=== PATIENT | female | born 1955 | race Caucasian/White ===

== ENCOUNTER 2022-10-07 22:21 | Emergency (ER) | payer MEDICARE, OTHER ==
[~2022-10-07 22:21] MED LIST: Aspirin 81 mg Enteric Coated Tablet ONE; Dicyclomine 10 MG CAP ONE; Estradiol 1 MG TAB ONE; FLUoxetine HCl 20 MG CAP ONE; Furosemide 20 MG TAB ONE; Gabapentin 400 MG CAP ONE; Glimepiride 2 MG TAB ONE; Hydrochlorothiazide 25 MG TAB ONE; Lisinopril 5 MG TAB ONE; Meloxicam 7.5 MG TAB ONE; busPIRone HCl 5 MG TAB ONE; metFORMIN 500 MG TAB ONE
[2022-10-07 22:59] LABS: #Basophils 0.1 thou/uL (0.0-0.2); #Eosinphils 0.3 thou/uL (0.0-0.7); #Lymphocytes 3.3 thou/uL (1.20-3.40); #Monocytes 1.1 thou/uL (0.11-0.59); #Neutrophils 8.8 thou/uL (1.40-6.50); %Basophils 0.8 % (0.0-1.0); %Eosinophils 2.3 % (0.0-10.0); %Lymphocytes 24.2 % (21.0-51.0); %Monocytes 8.1 % (0.0-10.0); %Neutrophils 64.7 % (42.0-75.0); Mean Corpuscular HGB CONC 34.9 g/dL (32.0-36.0); Mean Corpuscular Hemoglobin 28.9 pg (27.0-31.0); Mean Corpuscular Volume 82.8 fl (78.0-98.0); Mean Platelet Volume 7.6 fL (7.4-10.4); Platelet Count 257 10x3/uL (130-400); RBC Distribution Width 13.6 % (11.5-14.5); White Blood Cell (WBC) Count 13.7 10x3/uL (4.8-10.8)
[2022-10-07] MEDS ORDERED: Aspirin Chewable 81 MG TAB ONE (23:00)
[2022-10-07 23:20] LABS: INR-International Normal Ratio 1.7; PTT 37.1 sec (22.9-36.1); Prothrombin Time 20.9 sec (12.0-14.7)
[2022-10-07 23:21] LABS: ALT (SGPT) 18 U/L (8-55); AST (SGOT) 16 U/L (5-34); Albumin 4.1 g/dL (3.4-4.8); Alkaline Phosphatase 78 U/L (40-110); Anion Gap 18 mmol/L (10-20); BUN (Urea Nitrogen) 17 mg/dL (9.8-20.1); Bilirubin, Total 0.2 mg/dL (0.2-1.2); CK (CPK) 157 U/L (29-168); Calc. Creatinine Clearance 0 mL/min (70-130); Calcium 9.7 mg/dL (7.8-10.44); Carbon Dioxide 21 mmol/L (23-31); Chloride 102 mmol/L (98-107); Estimated GFR 73; Globulin 2.9 g/dL (2.4-3.5); Glucose 164 mg/dL (80-115); Lipase 55 U/L (8-78); Magnesium 1.8 mg/dL (1.6-2.6); Potassium 3.9 mmol/L (3.5-5.1); Sodium 137 mmol/L (136-145)
[2022-10-07 23:25] LABS: D-Dimer Test 0.27 *mcg/mL (0.27-0.43)
[2022-10-07 23:37] LABS: Bilirubin Negative (Negative); Blood, Urine Trace (Negative); Clarity Clear (Clear); Glucose, Urine (Dipstick) Negative (Negative); Ketone, Urine Trace mg/dL (Negative); Leukocyte Negative (Negative); Nitrite Negative (Negative); Protein, Urine (Dipstick) Negative (Neg-Trace); Urobilinogen 0.2 mg/dL (Less than 2)
[2022-10-07 23:47] LABS: Bacteria/HPF None Seen HPF (None Seen); RBC/HPF 0-3 HPF (0-3); Squamous Epithelial 0-3 HPF (0-3); WBC/HPF 0-3 HPF (0-3)
[2022-10-08 08:59] LABS: #Basophils 0.1 thou/uL (0.0-0.2); #Eosinphils 0.2 thou/uL (0.0-0.7); #Lymphocytes 2.7 thou/uL (1.20-3.40); #Monocytes 0.7 thou/uL (0.11-0.59); #Neutrophils 5.6 thou/uL (1.40-6.50); %Basophils 0.7 % (0.0-1.0); %Eosinophils 2.3 % (0.0-10.0); %Lymphocytes 28.9 % (21.0-51.0); %Neutrophils 60.2 % (42.0-75.0); Hemoglobin 10.5 g/dL (12.0-16.0); Mean Corpuscular HGB CONC 32.3 g/dL (32.0-36.0); Mean Corpuscular Hemoglobin 27.4 pg (27.0-31.0); Mean Corpuscular Volume 84.6 fl (78.0-98.0); Mean Platelet Volume 7.4 fL (7.4-10.4); Platelet Count 247 10x3/uL (130-400); RBC Distribution Width 13.5 % (11.5-14.5); Red Blood Cell (RBC) Count 3.83 mill/uL (4.20-5.40); White Blood Cell (WBC) Count 9.3 10x3/uL (4.8-10.8)
[2022-10-08 09:13] LABS: Anion Gap 13 mmol/L (10-20)
[2022-10-08 09:59] LABS: BUN (Urea Nitrogen) 13 mg/dL (9.8-20.1); Calc. Creatinine Clearance 0 mL/min (70-130); Carbon Dioxide 26 mmol/L (23-31); Chloride 100 mmol/L (98-107); Estimated GFR 81; Glucose 163 mg/dL (80-115); Potassium 3.8 mmol/L (3.5-5.1); Sodium 135 mmol/L (136-145)
[2022-10-08 10:00] LABS: Albumin 3.8 g/dL (3.4-4.8); Bilirubin, Total 0.4 mg/dL (0.2-1.2); Calcium 9.3 mg/dL (7.6-10.4); Globulin 2.9 g/dL (2.4-3.5); Protein, Total 6.7 g/dL (5.8-8.1)
[2022-10-08 10:04] LABS: ALT (SGPT) 17 U/L (8-55); AST (SGOT) 14 U/L (5-34); Alkaline Phosphatase 55 U/L (40-110)
[2022-10-08] MEDS ORDERED: Cyclobenzaprine 10 MG TAB PO PRN (10:44)
[2022-10-08] MEDS ORDERED: hydrOXYzine 25 MG TAB PO PRN (10:50)
[2022-10-08] MEDS ORDERED: Estradiol 1 MG TAB PO SCH (11:00)
[2022-10-08] MEDS ORDERED: Gabapentin 400 MG CAP PO SCH ×2 (11:00→15:00)
[2022-10-08] MEDS ORDERED: FLUoxetine HCl 20 MG CAP PO SCH (11:00)
[2022-10-08] MEDS ORDERED: metFORMIN 500 MG TAB PO SCH ×2 (11:00→17:00)
[2022-10-08] MEDS ORDERED: busPIRone HCl 5 MG TAB PO SCH ×2 (11:00→21:00)
[2022-10-08] MEDS ORDERED: Dicyclomine 10 MG CAP PO SCH ×2 (11:00→21:00)
[2022-10-08] MEDS ORDERED: Furosemide 20 MG TAB PO SCH ×2 (11:00→14:00)
[2022-10-08] MEDS ORDERED: Glimepiride 2 MG TAB PO SCH (11:00)
[2022-10-08] MEDS ORDERED: Rivaroxaban 10 MG TAB PO SCH (11:00)
[2022-10-08] MEDS ORDERED: Lisinopril 5 MG TAB PO SCH (11:00)
[2022-10-08] MEDS ORDERED: Meloxicam 7.5 MG TAB PO SCH (11:00)
[2022-10-08] MEDS ORDERED: Hydrochlorothiazide 25 MG TAB PO SCH (11:00)
[2022-10-08] MEDS ORDERED: Aspirin 81 mg Enteric Coated Tablet PO SCH (11:00)
[2022-10-08] MEDS ORDERED: Montelukast Sodium 10 mg Tablet PO SCH (21:00)
[2022-10-09] MEDS ORDERED: Glimepiride 2 MG TAB PO SCH (07:30)
[2022-10-09 08:31] LABS: #Basophils 0.1 thou/uL (0.0-0.2); #Eosinphils 0.2 thou/uL (0.0-0.7); #Monocytes 0.8 thou/uL (0.11-0.59); #Neutrophils 5.1 thou/uL (1.40-6.50); %Eosinophils 2.2 % (0.0-10.0); %Lymphocytes 32.5 % (21.0-51.0); %Monocytes 8.4 % (0.0-10.0); %Neutrophils 55.8 % (42.0-75.0); Hemoglobin 10.5 g/dL (12.0-16.0); Mean Corpuscular HGB CONC 32.6 g/dL (32.0-36.0); Mean Corpuscular Hemoglobin 27.4 pg (27.0-31.0); Mean Corpuscular Volume 84.1 fl (78.0-98.0); Mean Platelet Volume 7.1 fL (7.4-10.4); Platelet Count 243 10x3/uL (130-400); RBC Distribution Width 13.6 % (11.5-14.5); Red Blood Cell (RBC) Count 3.82 mill/uL (4.20-5.40); White Blood Cell (WBC) Count 9.2 10x3/uL (4.8-10.8)
[2022-10-09 08:49] LABS: ALT (SGPT) 17 U/L (8-55); AST (SGOT) 12 U/L (5-34); Albumin 3.7 g/dL (3.4-4.8); Alkaline Phosphatase 49 U/L (40-110); Anion Gap 15 mmol/L (10-20); BUN (Urea Nitrogen) 13 mg/dL (9.8-20.1); Bilirubin, Total 0.4 mg/dL (0.2-1.2); Calc. Creatinine Clearance 0 mL/min (70-130); Calcium 9.2 mg/dL (7.8-10.44); Carbon Dioxide 26 mmol/L (23-31); Chloride 99 mmol/L (98-107); Estimated GFR 79; Globulin 2.8 g/dL (2.4-3.5); Glucose 145 mg/dL (80-115); Potassium 3.7 mmol/L (3.5-5.1); Protein, Total 6.5 g/dL (5.8-8.1); Sodium 136 mmol/L (136-145)
[2022-10-09] MEDS ORDERED: FLUoxetine HCl 20 MG CAP PO SCH (09:00)
[2022-10-09] MEDS ORDERED: Meloxicam 7.5 MG TAB PO SCH (09:00)
[2022-10-09] MEDS ORDERED: Lisinopril 5 MG TAB PO SCH (09:00)
[2022-10-09] MEDS ORDERED: Rivaroxaban 10 MG TAB PO SCH (09:00)
[2022-10-09] MEDS ORDERED: Aspirin 81 mg Enteric Coated Tablet PO SCH (09:00)
[2022-10-09] MEDS ORDERED: Hydrochlorothiazide 25 MG TAB PO SCH (09:00)
[2022-10-09] MEDS ORDERED: Estradiol 1 MG TAB PO SCH (09:00)
== END 2022-10-09 11:20 | disposition home or self-care (01) ==
LOC: MADERS 22:21
DX: I20.0 Unstable angina (principal); R06.09 Other forms of dyspnea; I10 Essential (primary) hypertension; E11.9 Type 2 diabetes mellitus without complications; Z79.82 Long term (current) use of aspirin; Z79.84 Long term (current) use of oral hypoglycemic drugs
CPT/HCPCS: 36415; 71045; 80053; 81003; 81015; 82550; 83690; 83735; 83880; 84484; 85025; 85379; 85610; 85730; 93005

== ENCOUNTER 2023-01-13 15:42 | Emergency (ER) | payer MEDICARE, OTHER ==
[2023-01-13] MEDS ORDERED: Sodium Chloride 0.9% 100 ML ONE (15:52)
[2023-01-13] MEDS ORDERED: Diltiazem 125 MG/25 ML SDV ONE (15:52)
[2023-01-13 16:16] LABS: #Basophils 0.1 thou/uL (0.0-0.2); #Eosinphils 0.1 thou/uL (0.0-0.7); #Lymphocytes 2.7 thou/uL (1.20-3.40); #Monocytes 0.7 thou/uL (0.11-0.59); #Neutrophils 6.2 thou/uL (1.40-6.50); %Basophils 0.7 % (0.0-1.0); %Eosinophils 0.6 % (0.0-10.0); %Lymphocytes 27.3 % (21.0-51.0); %Monocytes 7.5 % (0.0-10.0); %Neutrophils 63.9 % (42.0-75.0); Hemoglobin 10.5 g/dL (12.0-16.0); Mean Corpuscular HGB CONC 33.3 g/dL (32.0-36.0); Mean Corpuscular Hemoglobin 27.7 pg (27.0-31.0); Mean Corpuscular Volume 83.1 fl (78.0-98.0); Mean Platelet Volume 8.1 fL (7.4-10.4); Platelet Count 335 10x3/uL (130-400); RBC Distribution Width 15.5 % (11.5-14.5); White Blood Cell (WBC) Count 9.7 10x3/uL (4.8-10.8)
[2023-01-13 16:28] LABS: ALT (SGPT) 12 U/L (8-55); AST (SGOT) 15 U/L (5-34); Albumin 3.7 g/dL (3.4-4.8); Alkaline Phosphatase 52 U/L (40-110); Anion Gap 17 mmol/L (10-20); BUN (Urea Nitrogen) 12 mg/dL (9.8-20.1); Bilirubin, Total 0.2 mg/dL (0.2-1.2); Calc. Creatinine Clearance 0 mL/min (70-130); Calcium 8.7 mg/dL (7.8-10.44); Carbon Dioxide 22 mmol/L (23-31); Chloride 103 mmol/L (98-107); Estimated GFR 75; Globulin 2.6 g/dL (2.4-3.5); Glucose 141 mg/dL (80-115); Magnesium 1.5 mg/dL (1.6-2.6); Potassium 3.3 mmol/L (3.5-5.1); Protein, Total 6.3 g/dL (5.8-8.1); Sodium 139 mmol/L (136-145)
[2023-01-13] MEDS ORDERED: Potassium Chloride 20 MEQ TAB ONE (17:04)
[2023-01-13] MEDS ORDERED: Magnesium 2 GM/50 ML BAG (IN WATER) ONE (17:05)
== END 2023-01-13 18:11 | disposition home or self-care (01) ==
LOC: MADERS 15:42
DX: I48.20 Chronic atrial fibrillation, unspecified (principal); E87.6 Hypokalemia; E83.42 Hypomagnesemia; D64.9 Anemia, unspecified; E11.9 Type 2 diabetes mellitus without complications; I10 Essential (primary) hypertension; Z79.899 Other long term (current) drug therapy; Z79.82 Long term (current) use of aspirin; Z79.84 Long term (current) use of oral hypoglycemic drugs
CPT/HCPCS: 71045; 80053; 83735; 84443; 85025; 93005; 94760; 96365; 96367; J3475

== ENCOUNTER 2023-08-26 11:33 | Emergency (ER) | payer MEDICARE, OTHER | END 2023-08-26 12:45 | disposition home or self-care (01) | LOC: MADERS 11:33 | DX: S70.01XA Contusion of right hip, initial encounter (principal); E11.9 Type 2 diabetes mellitus without complications; I10 Essential (primary) hypertension; I48.91 Unspecified atrial fibrillation; Z79.82 Long term (current) use of aspirin; Z79.84 Long term (current) use of oral hypoglycemic drugs; Z79.899 Other long term (current) drug therapy; W18.30XA Fall on same level, unspecified, initial encounter | CPT/HCPCS: 72170 ==

== ENCOUNTER 2025-05-17 18:34 | Emergency (ER) | payer MEDICARE, OTHER ==
[2025-05-17 19:12] LABS: INR-International Normal Ratio 1.4; Prothrombin Time 17.5 sec (12.0-14.7)
[2025-05-17 19:13] LABS: PTT 34.5 sec (22.9-36.1)
[2025-05-17 19:16] LABS: ALT (SGPT) 14 U/L (Less than 34); AST (SGOT) 28 U/L (11-34); Albumin 3.6 g/dL (3.1-4.5); Alkaline Phosphatase 90 U/L (40-110); Anion Gap 15 mmol/L (10-20); BUN (Urea Nitrogen) 28 mg/dL (9.8-20.1); Bilirubin, Total 0.6 mg/dL (0.3-1.2); Calc. Creatinine Clearance 0 mL/min (70-130); Calcium 8.8 mg/dL (7.8-10.44); Carbon Dioxide 22 mmol/L (23-31); Chloride 103 mmol/L (98-107); Globulin 3.5 g/dL (2.4-3.5); Glucose 231 mg/dL (83-110); Magnesium 1.9 mg/dL (1.6-2.6); Potassium 4.3 mmol/L (3.5-5.1); Sodium 136 mmol/L (136-145)
[2025-05-17 19:18] LABS: #Basophils 0.1 thou/uL (0.0-0.2); #Eosinophils 0.1 thou/uL (0.0-0.7); #Lymphocytes 2.5 thou/uL (1.20-3.40); #Monocytes 0.8 thou/uL (0.11-0.59); #Neutrophils 4.9 thou/uL (1.40-6.50); %Basophils 1.0 % (0.0-1.0); %Eosinophils 1.1 % (0.0-10.0); %Lymphocytes 30.3 % (21.0-51.0); %Monocytes 9.6 % (0.0-10.0); %Neutrophils 58.0 % (42.0-75.0); Anisocytosis SLIGHT = 6-15 cells (100X) (0-5/hpf); Hematocrit 25.4 % (36.0-47.0); Hemoglobin 7.7 g/dL (12.0-16.0); MDiff Complete? YES; Mean Corpuscular Hemoglobin 23.2 pg (27.0-31.0); Mean Corpuscular Volume 76.6 fl (78.0-98.0); Microcytosis SLIGHT = 6-15 cells (100X) (0-5/hpf); Platelet Adequacy Comment Appears Adequate; Platelet Count 291 10x3/uL (130-400); Red Blood Cell (RBC) Count 3.31 mill/uL (4.20-5.40); White Blood Cell (WBC) Count 8.4 10x3/uL (4.8-10.8)
[2025-05-17] MEDS ORDERED: Metoprolol Tartrate 5 MG (5 mL) VIAL ONE (19:37)
== END 2025-05-17 20:28 | disposition home or self-care (01) ==
LOC: MADERS 18:34
DX: D50.9 Iron deficiency anemia, unspecified (principal); I48.20 Chronic atrial fibrillation, unspecified; E11.65 Type 2 diabetes mellitus with hyperglycemia; I10 Essential (primary) hypertension; K21.9 Gastro-esophageal reflux disease without esophagitis; Z79.84 Long term (current) use of oral hypoglycemic drugs; Z79.01 Long term (current) use of anticoagulants
CPT/HCPCS: 36415; 71045; 80053; 82274; 83735; 83880; 84443; 85025; 85610; 85730; 86850; 86900; 86901; 93005; 94760; 96374

== ENCOUNTER 2025-06-01 10:23 | Emergency (ER) | payer MEDICARE, OTHER ==
[2025-06-01 12:46] LABS: Hematocrit 28.0 % (36.0-47.0); Hemoglobin 8.3 g/dL (12.0-16.0); Mean Corpuscular Hemoglobin 22.6 pg (27.0-31.0); Mean Corpuscular Volume 75.8 fl (78.0-98.0); Platelet Count 176 10x3/uL (130-400); Red Blood Cell (RBC) Count 3.69 mill/uL (4.20-5.40); White Blood Cell (WBC) Count 7.9 10x3/uL (4.8-10.8)
[2025-06-01 12:47] LABS: MDiff Complete? YES; Manual Diff?? YES
[2025-06-01 12:48] LABS: Anisocytosis SLIGHT = 6-15 cells (100X) (0-5/hpf); Platelet Adequacy Comment Appears Adequate
[2025-06-01 14:02] LABS: ALT (SGPT) 17 U/L (Less than 34); AST (SGOT) 26 U/L (11-34); Albumin 3.4 g/dL (3.1-4.5); Alkaline Phosphatase 70 U/L (40-110); Anion Gap 17 mmol/L (10-20); BUN (Urea Nitrogen) 26 mg/dL (9.8-20.1); Bilirubin, Total 1.1 mg/dL (0.3-1.2); CK (CPK) 67 U/L (29-168); Calc. Creatinine Clearance 0 mL/min (70-130); Calcium 8.6 mg/dL (7.8-10.44); Carbon Dioxide 22 mmol/L (23-31); Chloride 104 mmol/L (98-107); Globulin 3.2 g/dL (2.4-3.5); Glucose 151 mg/dL (83-110); Magnesium 1.5 mg/dL (1.6-2.6); Potassium 3.7 mmol/L (3.5-5.1); Sodium 139 mmol/L (136-145)
[2025-06-01 14:04] LABS: Troponin I Less than 0.010 ng/mL (< 0.028)
[2025-06-01 14:53] LABS: Glucose, Urine (Dipstick) Negative (Negative); Leukocyte Negative (Negative); Protein, Urine (Dipstick) Negative (Neg-Trace); Specific Gravity, Urine 1.025 (1.005-1.030)
[2025-06-01 14:59] LABS: Bacteria/HPF Rare-Few HPF (None Seen); CAUTI Indications for Culture Alt mental st,lethar; Mucous/LPF Few LPF (<2+); RBC/HPF None Seen HPF (0-3); WBC/HPF 0-3 HPF (0-3)
[2025-06-01 15:00] LABS: Urine Culture Reflex No No
[2025-06-01] MEDS ORDERED: Furosemide 20 MG (2 mL) VIAL ONE (15:42)
[2025-06-01] MEDS ORDERED: Enoxaparin 100 MG (1 mL) SYRINGE ONE (19:50)
== END 2025-06-01 20:16 | disposition short-term general hospital (02) ==
LOC: MADERS 10:23
DX: R41.82 Altered mental status, unspecified (principal); I48.91 Unspecified atrial fibrillation; L03.90 Cellulitis, unspecified; I11.0 Hypertensive heart disease with heart failure; I50.9 Heart failure, unspecified; E86.0 Dehydration; E87.20 Acidosis, unspecified; I31.39 Other pericardial effusion (noninflammatory); E11.9 Type 2 diabetes mellitus without complications
CPT/HCPCS: 70450; 71250; 72125; 74177; 80053; 81001; 82550; 83605; 83735; 83880; 84484; 85025; 93005; J0692; J1650; J1940; J3373; J7050; 36415; 96365; 96367; 96372; 96375